=== PATIENT | female | born 1990 | race African-American/Black ===

== ENCOUNTER 2018-03-20 12:04 | Emergency (ER) | payer OTHER ==
[~2018-03-20] VITALS: Ht 162.6 cm; Wt 105.5 kg
[~2018-03-20 12:04] MED LIST: AMOXICILLIN875 MG PO; DOXYCYCLINE HY100 M3 PO; IBUPROFEN200 M1 PO; IBUPROFEN800 MG PO; INDOCIN50 MG PO; IRON325 MG PO; MACROBID100 MG PO; METRONIDAZOLE500 MG PO; MOTRIN800 MG PO; MOUTHSPRAY10 ML MM; NOHOMEMEDS; PREDNISONE10 M1 PO; ZOFRAN ODT4 MG PO
[2018-03-20 12:34] LABS: HEMATOCRIT 36.8 % (36.0-46.0); HEMOGLOBIN 12.3 G/DL (11.9-15.5); MCH 27.1 PG (29.0-34.0); MCHC 33.4 G/DL (30.0-36.0); MCV 81.1 FL (83-99); RBC DIS.WIDTH-CV 14.8 % (11.8-14.6); RBC DIS.WIDTH-SD 43.7 % (39-53); RED BLOOD COUNT 4.54 M/uL (3.80-5.20); WHITE BLOOD COUNT 6.3 K/uL (4.1-10.2)
[2018-03-20 12:59] LABS: CHLORIDE 106 MEQ/L (99-109); CREATININE 0.8 MG/DL (0.6-1.3); GFR ESTIMATE (CALCULATED) > 59 mL/min/; GLUCOSE 85 mg/dL (70-99); POTASSIUM 3.9 MEQ/L (3.7-5.4); SODIUM 139 MEQ/L (136-147); UREA NITROGEN (BUN) 8 mg/dL (9-23)
[2018-03-20 13:19] LABS: PLAT.SUFFICIENCY INCREASED; PLATELET COUNT 365 K/uL (156-360)
[2018-03-20 13:45] VITALS: BP 141/84
== END 2018-03-20 13:45 | disposition home or self-care (01) ==
LOC: EME 12:04
DX: R06.02 Shortness of breath (principal); F41.9 Anxiety disorder, unspecified; R05 Cough; Z86.2 Personal history of diseases of the blood and blood-forming organs and certain disorders involving the immune mechanism; Z91.018 Allergy to other foods
CPT/HCPCS: 71046; 80048; 85027; 99281; 99284